=== PATIENT | female | born 1945 | race Caucasian/White ===

== ENCOUNTER → 2018-06-12 | Outpatient (CLI) | payer MEDICARE, OTHER ==
[~2018-06-12] MED LIST: AMLO-111 PO; AMLO-113 PO; AMLO2.5T75 PO; ASP81 PO; CITA-145 PO; DEXL60CA6 PO; FLUT1AER INH; FUR20 PO; FURO-47 PO; LOSA-54 PO; LOSA100T75 PO; MAGN1TAB29 PO; METO-235 PO; PAN40 PO; PER PO; POTA-53 PO; VALS160T20 PO; ZOLP-350 PO
== END ==
LOC: AMB 00:13
PROVIDERS: ATTEND Nurse Practitioner
DX: R06.03 Acute respiratory distress (principal); I10 Essential (primary) hypertension; W06.XXXA Fall from bed, initial encounter; Y92.013 Bedroom of single-family (private) house as the place of occurrence of the external cause
CPT/HCPCS: A0425; A0427